=== PATIENT | male | born 1960 | race Caucasian/White ===

== ENCOUNTER 2019-05-13 19:29 | Inpatient (IN) | payer OTHER ==
[2019-05-13] MEDS ORDERED: Adacel (T-DAP) 0.5 ML SYRINGE ONE (19:41)
[2019-05-13 19:55] LABS: #Basophils 0.1 thou/uL (0.0-0.2); #Eosinphils 0.1 thou/uL (0.0-0.7); #Monocytes 0.5 thou/uL (0.11-0.59); #Neutrophils 4.7 thou/uL (1.40-6.50); %Eosinophils 1.1 % (0.0-10.0); %Monocytes 7.4 % (0.0-10.0); %Neutrophils 63.6 % (42.0-75.0); Hemoglobin 17.8 g/dL (14.0-18.0); Mean Corpuscular HGB CONC 34.5 g/dL (32.0-36.0); Mean Corpuscular Volume 98.7 fL (78.0-98.0); Mean Platelet Volume 6.7 fL (7.4-10.4); Platelet Count 153 thou/uL (130-400); Red Blood Cell (RBC) Count 5.23 mill/uL (4.70-6.10); White Blood Cell (WBC) Count 7.4 thou/uL (4.8-10.8)
--- NOTE | 2019-05-13 20:01 | RAD ---
PORTABLE CHEST: 05/13/19 HISTORY: Trauma. Lungs appear clear. No infiltrate or vascular congestion. Heart size is normal. IMPRESSION: No acute findings. POS: AGW
[2019-05-13 20:16] LABS: ALT (SGPT) 28 U/L (8-55); AST (SGOT) 23 U/L (5-34); Acetaminophen Less than 6.0 mcg/mL (10.0-30.0); Albumin 4.6 g/dL (3.5-5.0); Alcohol 221 mg/dL (Less than 10); Alkaline Phosphatase 96 U/L (40-110); Anion Gap 17 mmol/L (10-20); BUN (Urea Nitrogen) 8 mg/dL (8.4-25.7); Bilirubin, Total 0.4 mg/dL (0.2-1.2); Calc. Creatinine Clearance 0 mL/min (70-130); Calcium 9.6 mg/dL (7.8-10.44); Carbon Dioxide 23 mmol/L (22-29); Chloride 101 mmol/L (98-107); Estimated GFR-MDRD Greater than 90; Globulin 3.3 g/dL (2.4-3.5); Glucose 93 mg/dL (70-105); Potassium 3.7 mmol/L (3.5-5.1); Protein, Total 7.9 g/dL (6.0-8.3); Salicylate Less than 8.0 mg/dL (15.0-30.0); Sodium 137 mmol/L (136-145)
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
[2019-05-13 20:58] LABS: Bilirubin Negative (Negative); Blood, Urine Negative (Negative); Clarity Clear (Clear); Glucose, Urine (Dipstick) Normal (Negative); Leukocyte Negative Leu/uL (Negative); Nitrite Negative (Negative); Protein, Urine (Dipstick) Negative (Neg-Trace); Urobilinogen Normal mg/dL (Less than 2)
[2019-05-13 21:08] LABS: Amphetamine Not Detected (NotDetected); Benzodiazepine Screen Not Detected (NotDetected); Cocaine Metabolite Screen Detected (NotDetected); Medtox Reader # READER 1; Methadone Not Detected (NotDetected); Methamphetamine Not Detected (NotDetected); Opiate Screen Not Detected (NotDetected); Phencyclidine (PCP) Not Detected (NotDetected); THC/Cannabinoid Screen Not Detected (NotDetected); Tricyclic Screen Not Detected (NotDetected)
[2019-05-13 21:09] LABS: Barbiturates Screen Not Detected (NotDetected); Medtox Control Line Valid? VALID (VALID); Oxycodone Screen Not Detected (NotDetected)
[2019-05-13] MEDS ORDERED: Lidocaine 1% PF 5 ML VIAL ONE (21:30)
[2019-05-13] MEDS ORDERED: Lidocaine 1% (PF) 30 ML VIAL ONE (21:35)
[2019-05-13] MEDS ORDERED: Morphine 2 MG/ML SYRINGE ONE (22:05)
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
[2019-05-13] MEDS ORDERED: Dextrose 50% Abboject 50 ML SYRINGE SLOW IVP PRN (23:45)
[2019-05-13] MEDS ORDERED: Ondansetron ODT 4 MG TAB PO PRN (23:45)
[2019-05-13] MEDS ORDERED: Ondansetron PF 4 MG/2 ML Vial IVP PRN (23:45)
[2019-05-13] MEDS ORDERED: Dextrose 5% in Water 1,000 ML IV PRN (23:45)
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
[2019-05-13 23:56] LABS: INR-International Normal Ratio 0.9; PTT 26.5 SEC (22.9-36.1); Prothrombin Time 11.6 SEC (12.0-14.7)
[2019-05-14] MEDS ORDERED: Acetaminophen 1,000 MG in Premix Bag 1 BAG IVPB SCH (00:30)
[2019-05-14] MEDS: Sodium Chloride 0.9% 1,000 ML IV SCH ×3 (00:58→16:26)
[2019-05-14 01:14] VITALS: BMI 20.8
[2019-05-14 04:00] LABS: #Lymphocytes 0.7 thou/uL (1.20-3.40); #Monocytes 0.4 thou/uL (0.11-0.59); #Neutrophils 7.8 thou/uL (1.40-6.50); %Basophils 0.1 % (0.0-1.0); %Eosinophils 0.1 % (0.0-10.0); %Monocytes 4.3 % (0.0-10.0); %Neutrophils 87.5 % (42.0-75.0); Hemoglobin 14.6 g/dL (14.0-18.0); Mean Corpuscular HGB CONC 33.6 g/dL (32.0-36.0); Mean Corpuscular Hemoglobin 32.9 pg (27.0-31.0); Mean Corpuscular Volume 97.9 fL (78.0-98.0); Mean Platelet Volume 6.7 fL (7.4-10.4); Platelet Count 128 thou/uL (130-400); RBC Distribution Width 11.7 % (11.5-14.5); Red Blood Cell (RBC) Count 4.45 mill/uL (4.70-6.10); White Blood Cell (WBC) Count 8.9 thou/uL (4.8-10.8)
[2019-05-14 04:23] LABS: Anion Gap 12 mmol/L (10-20); BUN (Urea Nitrogen) 7 mg/dL (8.4-25.7); Calc. Creatinine Clearance 120 mL/min (70-130); Calcium 8.2 mg/dL (7.8-10.44); Carbon Dioxide 24 mmol/L (22-29); Chloride 104 mmol/L (98-107); Estimated GFR-MDRD Greater than 90; Glucose 97 mg/dL (70-105); Potassium 3.9 mmol/L (3.5-5.1); Sodium 136 mmol/L (136-145)
[2019-05-14] MEDS: Acetaminophen 500 MG TAB PO SCH ×4 (05:14→20:31)
[2019-05-14] MEDS: traMADol HCl 50 MG TAB PO PRN ×3 (05:14→20:31)
--- NOTE | 2019-05-14 07:45 | CT ---
CT OF THE BRAIN WITHOUT CONTRAST: INDICATION: Followup intracranial hemorrhage. COMPARISON: Prior CT of the brain dated 05/13/2019 at 7:50 p.m. FINDINGS: The subarachnoid hemorrhage seen along the parafalcine region and along the sulci of the right fronta l lobe has intervally dispersed. A small focus of hemorrhage still is layered within the sulci of th e right frontal lobe adjacent to the right falx on image 29 of series 4. There is more layered hemor rhage within the right Sylvian fissure as well as within the inner peduncular cistern of the mid brai n. A small amount of layered hemorrhage is seen along the left tentorium. No hydrocephalus is evide nt. No midline shift is noted. No acute infarct is evident. Mastoid air cells are clear. Mucosal thickening of the left maxillary sinus is stable. Mild displaced nondepressed right frontal skull fr acture is unchanged. IMPRESSION: Some interval dispersal of the subarachnoid hemorrhage seen predominantly within the anterior cranial fossa on the prior examination now layered within the right Sylvian fissure, interpeduncular cistern , and along the left tentorium. A small amount remains within the sulcus of the anterior vertex righ t frontal lobe. POS: BH
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
[2019-05-14] MEDS ORDERED: FLU VACC QS2019-20(6MOS UP)/PF 60 MCG/0.5 ML SYRINGE IM ONE (09:00)
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
[2019-05-14] MEDS: Famotidine/PF 20 mg/2ml Vial SLOW IVP SCH ×2 (10:32→20:25)
[2019-05-14] MEDS: Bacitracin Zinc Ointment 30 gm TUBE TOP SCH (10:32)
[2019-05-14] MEDS ORDERED: Lorazepam 2 MG/ML VIAL SLOW IVP SCH (11:45)
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
--- NOTE | 2019-05-14 12:51 | MRI ---
MR CERVICAL SPINE WITHOUT CONTRAST INDICATION: Neck pain TECHNIQUE: Multiplanar multisequence MR images were obtained of the cervical spine without contrast. COMPARISON: CT cervical spine dated May 13, 2019 FINDINGS: Motion artifact degrades image detail. Posterior fossa: Within normal limits. Bone marrow signal intensity: Normal Spinal alignment: Normal. Craniocervical junction: Normal appearing. Prevertebral and perivertebral soft tissues: There is edema seen within the prevertebral soft tissues . The visualized aspects of the anterior longitudinal ligament appear intact. The visualized ligamentum flavum and interspinous ligaments from C3 through T1 appear intact. Mild edema seen within the interspinous ligaments between C1 and C2 and C2-C3. The posterior longitudinal ligament appear intact. No abnormal fluid signal intensity is seen within the intervertebral discs. Vertebral levels: C2-C3: No appreciable central canal or neuroforaminal narrowing. C3-4: There is uncovertebral hypertrophy and facet joint degenerative change inducing severe left and mild right neural foraminal narrowing. C4-5: There is a mild broad-based bulge inducing mild central canal narrowing and mild ventral conta ct of the spinal cord. There is facet hypertrophy and uncovertebral hypertrophy inducing moderate to severe bilateral neural foraminal narrowing. C5-C6: There is a broad-based bulge with uncovertebral hypertrophy and facet joint degenerative green e inducing severe right and moderate left neural foraminal narrowing. There is also mild central canal narrowing. No definite cord compression is evident. C6-C7:, There is an asymmetric to the right broad-based bulge with uncovertebral hypertrophy inducing severe right and mild left neural foraminal narrowing. C7-T1: There is an asymmetric to the right broad-based bulge. There is mild bilateral neural foramina l narrowing. IMPRESSION: 1. Abnormal soft tissue edema within the prevertebral soft tissues . The soft tissue edema be in a ma y be reactive due to acute traumatic strain of the anterior spinal musculature. Recommend conservative therapy with maintenance of spine precautions and a follow-up MRI of the cervical spine in one week to document resolution. 2. Mild sprain in the interspinous ligaments between C1 and C2 and C2-C3. 3. Severe multilevel spondylosis of the cervical spine with multilevel central canal and neural tad inal narrowing as detailed above.
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
[2019-05-15] MEDS: Sodium Chloride 0.9% 1,000 ML IV SCH ×2 (00:41→11:06)
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
[2019-05-15] MEDS: Acetaminophen 500 MG TAB PO SCH ×3 (05:32→18:19)
[2019-05-15] MEDS: Famotidine/PF 20 mg/2ml Vial SLOW IVP SCH (09:24)
[2019-05-15] MEDS: Bacitracin Zinc Ointment 30 gm TUBE TOP SCH (09:24)
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
[2019-05-15] MEDS: traMADol HCl 50 MG TAB PO PRN (21:01)
[2019-05-15] MEDS: Famotidine 20 MG TAB PO SCH (21:01)
[2019-05-16] MEDS: Acetaminophen 500 MG TAB PO SCH ×4 (01:11→19:38)
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
[2019-05-16] MEDS: Famotidine 20 MG TAB PO SCH (07:46)
[2019-05-16] MEDS: traMADol HCl 50 MG TAB PO PRN (07:51)
[2019-05-16] MEDS ORDERED: Lisinopril 10 MG TAB PO SCH (09:00)
[2019-05-16] MEDS: Bacitracin Zinc Ointment 30 gm TUBE TOP SCH (12:02)
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
[2019-05-16 16:42] VITALS: BP 123/84; TEMP 98.1
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
== END 2019-05-16 18:40 | disposition home or self-care (01) | DRG 84 ==
LOC: ERS 19:29 → IMCU/EMU 05-14 00:56 → SURG A 05-15 20:41
PROVIDERS: ADMIT Surgery; ATTEND Surgery
DX: S06.6X9A Traumatic subarachnoid hemorrhage with loss of consciousness of unspecified duration, initial encounter (principal); F10.129 Alcohol abuse with intoxication, unspecified; S02.121A Fracture of orbital roof, right side, initial encounter for closed fracture; S42.001A Fracture of unspecified part of right clavicle, initial encounter for closed fracture; S02.0XXA Fracture of vault of skull, initial encounter for closed fracture; F17.210 Nicotine dependence, cigarettes, uncomplicated; R40.2432 Glasgow coma scale score 3-8, at arrival to emergency department; F14.10 Cocaine abuse, uncomplicated; S01.311A Laceration without foreign body of right ear, initial encounter; V29.9XXA Motorcycle rider (driver) (passenger) injured in unspecified traffic accident, initial encounter
CPT/HCPCS: 12013; 36415; 70450; 70486; 71045; 71260; 72125; 72141; 74177; 80048; 80053; 80306; 80307; 81003; 85025; 85610; 85730; 86850; 86900; 86901; 90471; 90715; 94760; 96361; 96374; 96375; 99292; G0390; J0131; J0690; J2001; J2060; J2270; S0028